=== PATIENT | female | born 1980 | race Hispanic/Latino ===

== ENCOUNTER 2023-06-17 19:33 | Emergency (ER) | payer BC ==
[~2023-06-17] VITALS: Ht 157.5 cm; Wt 62.7 kg
[2023-06-17 19:35] VITALS: BP 135/85; PULSE 69; RESP 18
[2023-06-17] MEDS ORDERED: MORPHINE 4 MG SYG IVP ONE (21:30)
[2023-06-17] MEDS ORDERED: 0.9%NACL 50ML IV SCH (21:30)
[2023-06-17] MEDS ORDERED: ONDANSETRON 4MG INJ IVP ONE (21:30)
[2023-06-17] MEDS ORDERED: 0.9%NACL 1000ML 1,000 ML IV ONE (21:30)
[2023-06-17] MEDS ORDERED: ZOSYN 3.375GM +NS 50ML IVPB SCH ×2 (21:30→22:00)
[2023-06-17 21:46] LABS: BASOPHILS % (AUTO) 0.3 % (0.0-5.0); EOSINOPHILS % (AUTO) 2.5 % (0.0-8.0); HEMATOCRIT 32.8 % (36-48); LYMPHOCYTES % (AUTO) 38.5 % (21.0-51.0); MEAN CORPUSCULAR HEMOGLOBIN 25.3 pg (27.0-33.0); MEAN CORPUSCULAR HGB CONC 30.8 g/dL (32.0-36.0); MEAN CORPUSCULAR VOLUME 82.2 fL (79-99); MONOCYTES % (AUTO) 7.6 % (3.0-13.0); PLATELET COUNT (AUTO) 242 K/uL (130-400); RED BLOOD CELL COUNT(AUTO) 3.99 MIL/uL (4.00-5.50); RED CELL DISTRIBUTION WIDTH 15.5 % (11.0-15.5); WHITE BLOOD COUNT (AUTO) 7.5 K/uL (4.8-10.8)
[2023-06-17 21:54] LABS: APPEARANCE,URINE CLEAR (CLEAR); BILIRUBIN,URINE NEGATIVE (NEGATIVE); COLOR,URINE LIGHT-YELLOW (YELLOW); GLUCOSE, URINE (UA) 500 mg/dL (NEGATIVE); KETONES,URINE 10 mg/dL (NEGATIVE); LEUKOCYTE ESTERASE ,URINE NEGATIVE Leu/uL (NEGATIVE); NITRATE,URINE NEGATIVE (NEGATIVE); OCCULT BLOOD,URINE NEGATIVE (NEGATIVE); PH,URINE 6.5 (5.0-8.0); PROTEIN,URINE NEGATIVE (NEGATIVE); UROBILINOGEN,URINE 0.2 mg/dL (0.2-1.0)
[2023-06-17 22:05] LABS: HCG,QUALITATIVE URINE NEGATIVE (NEGATIVE)
[2023-06-17 22:10] LABS: MUCUS,URINE RARE LPF (None Seen); SQUAMOUS EPITHELIAL CELL,UR RARE /HPF (0-2); WBC,URINE 0-1 /HPF (0-1)
[2023-06-17 22:45] LABS: CREATININE 0.7 mg/dL (0.5-1.5); POTASSIUM 3.1 mmol/L (3.5-5.1)
[2023-06-17] MEDS ORDERED: IOHEXOL-350 75 ML VIAL IV ONE (22:48)
[2023-06-17 22:51] LABS: ALBUMIN 3.8 g/dL (3.5-5.0); TOTAL PROTEIN, SERUM 7.4 g/dL (6.0-8.3)
[2023-06-17] MEDS ORDERED: NAPR375T6 PO (23:52)
== END 2023-06-18 00:07 | disposition home or self-care (01) ==
LOC: EDH 19:33
DX: N83.202 Unspecified ovarian cyst, left side (principal); Z20.822 Contact with and (suspected) exposure to COVID-19
CPT/HCPCS: 99284; 74177; 96365; 96375; 87635; 80053; 83690; 85025; 87040; 87804 ×2; 83605; 81001; 81025; 36415; C9803; J7030; J2405; J2270; J2543; Q9967